=== PATIENT | male | born 1970 | race Two or more races ===

== ENCOUNTER 2023-04-06 05:14 | Day surgery (SDC) | payer OTHER ==
[~2023-04-06] VITALS: Ht 167.6 cm; Wt 109.3 kg
[~2023-04-06 05:14] MED LIST: AMLODIPINE BESYL5 MG PO; METFORMIN HCL500 M3 PO; PEPCID AC20 MG PO; ZESTRIL2.5 MG PO
== END 2023-04-06 12:35 | disposition home or self-care (01) ==
LOC: CIR.AMB 05:14
PROVIDERS: ATTEND Surgery
DX: K80.10 Calculus of gallbladder with chronic cholecystitis without obstruction (principal); Z20.822 Contact with and (suspected) exposure to COVID-19